=== PATIENT | female | born 1995 | race African-American/Black ===

== ENCOUNTER 2017-07-20 12:50 | Emergency (ER) | payer MEDICAID ==
[2017-07-20 14:03] LABS: Bilirubin Negative (Negative); Blood, Urine Small (Negative); Glucose, Urine (Dipstick) Negative (Negative); Ketone, Urine Negative (Negative); Nitrite Negative (Negative); Protein, Urine (Dipstick) Negative (Neg-Trace)
[2017-07-20 14:05] LABS: Bacteria/HPF 1+ HPF (None Seen); Hyaline Casts/LPF 4-6 HYALINE CAST LPF (0-3 Hyaline); Squamous Epithelial 0-3 HPF (0-3); WBC/HPF 21-50 HPF (0-3)
[2017-07-20 14:14] LABS: Yeast-All Forms Rare HPF (None Seen)
== END 2017-07-20 15:15 | disposition home or self-care (01) ==
LOC: ERS 12:50
DX: O23.42 Unspecified infection of urinary tract in pregnancy, second trimester (principal); O99.342 Other mental disorders complicating pregnancy, second trimester; F41.9 Anxiety disorder, unspecified; Z3A.16 16 weeks gestation of pregnancy
CPT/HCPCS: 81003; 81015; 99283

== ENCOUNTER 2019-05-07 23:44 | Emergency (ER) | payer SELFPAY ==
[2019-05-08] MEDS ORDERED: Albuterol Sulfate 2.5 mg/0.5 ml Neb ONE (01:26)
[2019-05-08] MEDS ORDERED: Albuterol Sulfate 2.5 mg/3 ml Neb ONE (01:26)
[2019-05-08] MEDS ORDERED: predniSONE 20 MG TAB ONE (02:22)
--- NOTE | 2019-05-08 08:09 | RAD ---
CHEST ONE VIEW: History: Shortness of breath Comparison: None FINDINGS: Lungs are clear. No pneumothorax or effusion. Cardiac silhouette and mediastinal contours are within normal limits. IMPRESSION: No acute intrathoracic abnormality. POS: CET
== END 2019-05-08 02:26 | disposition home or self-care (01) ==
LOC: ERS 23:44
DX: O99.511 Diseases of the respiratory system complicating pregnancy, first trimester (principal); J45.909 Unspecified asthma, uncomplicated; O99.341 Other mental disorders complicating pregnancy, first trimester; F41.9 Anxiety disorder, unspecified; Z87.891 Personal history of nicotine dependence; Z3A.01 Less than 8 weeks gestation of pregnancy
CPT/HCPCS: 71045; 94640; 94644; J7512; J7611; J7620